=== PATIENT | male | born 1960 | race African-American/Black ===

== ENCOUNTER 2020-09-03 03:40 | Emergency (ER) | payer MEDICAID ==
[~2020-09-03] VITALS: Ht 182.9 cm; Wt 91.0 kg
[2020-09-03 05:30] LABS: EOSINOPHILS % 4.3 % (0.0-5.0); HEMATOCRIT. 40.8 % (42.0-52.0); HEMOGLOBIN. 13.8 g/dL (14.0-18.0); LYMPHOCYTES % 17.2 % (20.0-50.0); MEAN CORPUSCULAR HEMOGLOBIN 30.6 pg (28.0-32.0); MEAN CORPUSCULAR VOLUME 90.2 fL (80.0-94.0); MEAN PLATELET VOLUME 10.2 fl (7.4-10.4); MONOCYTES % 8.4 % (2.0-8.0); NEUTROPHILS % 69.1 % (40.0-76.0); PLATELET 172 x1000/uL (130-400); RED BLOOD CELL COUNT 4.53 mill/uL (4.7-6.1); RED CELL DISTRIBUTION WIDTH 13.2 % (11.6-14.6)
[2020-09-03 05:39] LABS: CHLORIDE 110 mEq/L (98-107)
[2020-09-03 05:43] LABS: ETHANOL BLOOD < 10 mg/dL
[2020-09-03 06:22] LABS: CLARITY URINE CLEAR (CLEAR); COLOR URINE YELLOW (YELLOW); KETONES URINE NEGATIVE (NEGATIVE); LEUKOCYTE ESTERASE URINE NEGATIVE (NEGATIVE); NITRITE URINE NEGATIVE (NEGATIVE); OCCULT BLOOD URINE NEGATIVE (NEGATIVE); PROTEIN URINE 2+ (NEGATIVE); SPECIFIC GRAVITY URINE 1.022 (1.005-1.030)
[2020-09-03 06:34] LABS: *AMPHETAMINES SCREEN URINE NEGATIVE (NEGATIVE); *BARBITURATES SCREEN URINE NEGATIVE (NEGATIVE); *BENZODIAZEPINES SCREEN URINE NEGATIVE (NEGATIVE); *COCAINE SCREEN URINE PRESUMTIVE POSITIVE (NEGATIVE); METHADONE URINE SCREEN NEGATIVE (NEGATIVE); OPIATES URINE SCREEN NEGATIVE (NEGATIVE)
[2020-09-03 06:35] LABS: CANNABINOID URINE SCREEN NEGATIVE (NEGATIVE); PHENCYCLIDINE URINE SCREEN PRESUMTIVE POSITIVE (NEGATIVE)
[2020-09-03] MEDS ORDERED: SODIUM CHLORIDE 0.9% 1,000 ML IV ONE (06:45)
[2020-09-03 08:53] VITALS: BP 135/80
== END 2020-09-03 08:57 | disposition home or self-care (01) ==
LOC: ER 03:47 → EDBD 03:47 → ER 08:57
DX: R41.82 Altered mental status, unspecified (principal); F16.10 Hallucinogen abuse, uncomplicated
CPT/HCPCS: 36415; 70450; 80053; 80305; 80307; 80320; 80329; 81003; 84484; 85025; 93005; 99285; J7030; G0480

== ENCOUNTER 2021-07-03 04:51 | Emergency (ER) | payer MEDICAID ==
[~2021-07-03] VITALS: Ht 170.2 cm; Wt 77.0 kg
[2021-07-03] MEDS ORDERED: ACETAMINOPHEN 325MG TABLET PO ONE (05:45)
[2021-07-03] MEDS ORDERED: AMOXICILLIN/POTASSIUM CLAVULANATE 875/125MG TAB PO ONE (05:45)
[2021-07-03] MEDS ORDERED: AMOX-424 MT (06:01)
[2021-07-03] MEDS ORDERED: ACET-2708 MT (06:01)
[2021-07-03] MEDS ORDERED: CHLO473M2 MT (06:08)
[2021-07-03 06:47] VITALS: BP 162/98
== END 2021-07-03 06:48 | disposition home or self-care (01) ==
LOC: ER 04:51
DX: S02.5XXA Fracture of tooth (traumatic), initial encounter for closed fracture (principal); S06.9X0A Unspecified intracranial injury without loss of consciousness, initial encounter; F17.200 Nicotine dependence, unspecified, uncomplicated; I10 Essential (primary) hypertension; Z98.890 Other specified postprocedural states; X58.XXXA Exposure to other specified factors, initial encounter; Y93.89 Activity, other specified; Y92.89 Other specified places as the place of occurrence of the external cause; Y99.8 Other external cause status
CPT/HCPCS: 99283

== ENCOUNTER 2021-08-11 04:53 | Emergency (ER) | payer MEDICAID ==
[~2021-08-11] VITALS: Ht 170.2 cm; Wt 78.0 kg
[~2021-08-11 04:53] MED LIST: ACET-2708 MT; AMOX-424 MT; CHLO473M2 MT
[2021-08-11 08:41] LABS: BASOPHILS % 0.3 % (0.0-2.0); HEMATOCRIT. 44.8 % (42.0-52.0); HEMOGLOBIN. 15.2 g/dL (14.0-18.0); LYMPHOCYTES % 13.1 % (20.0-50.0); MEAN CORPUSCULAR HEMOGLOBIN 29.6 pg (28.0-32.0); MEAN CORPUSCULAR VOLUME 87.3 fL (80.0-94.0); MEAN PLATELET VOLUME 9.6 fl (7.4-10.4); MONOCYTES % 9.1 % (2.0-8.0); NEUTROPHILS % 77.5 % (40.0-76.0); PLATELET 133 x1000/uL (130-400); RED BLOOD CELL COUNT 5.13 mill/uL (4.7-6.1); RED CELL DISTRIBUTION WIDTH 13.8 % (11.6-14.6)
[2021-08-11 13:37] VITALS: BP 146/89
== END 2021-08-11 13:40 | disposition home or self-care (01) ==
LOC: ER 04:53
DX: J18.9 Pneumonia, unspecified organism (principal); N28.9 Disorder of kidney and ureter, unspecified; F99 Mental disorder, not otherwise specified; I10 Essential (primary) hypertension; Z86.19 Personal history of other infectious and parasitic diseases
CPT/HCPCS: 36415; 71045; 80048; 83880; 84484; 85025; 87426; 99284

== ENCOUNTER 2023-01-18 02:25 | Emergency (ER) | payer MEDICARE, MEDICAID ==
[~2023-01-18] VITALS: Ht 170.2 cm; Wt 70.0 kg
[~2023-01-18 02:25] MED LIST changes: +ASPI-1406 PO; +ATOR20TA MT; +ATOR20TA65 PO; +CARV6.2548 PO; +CLOP-31 MT; +CLOP75TA33 PO; +FURO-151 MT; +LEVO750T68 PO; +LISI-186 PO; +LISI10TA26 MT; +MONT-39 PO
[2023-01-18 02:35] VITALS: BP 166/123
[2023-01-18] MEDS ORDERED: ALBUTEROL (0.083%) 2.5MG/3ML NEB HHN STA (04:45)
[2023-01-18] MEDS ORDERED: METHYLPREDNISOLONE SOD SUCC 125 MG/2 ML VIAL IM STA (04:45)
[2023-01-18] MEDS ORDERED: IPRATROPIUM BROMIDE (0.02%) 0.5MG/2.5ML NEB HHN STA (04:45)
[2023-01-18] MEDS ORDERED: DEXTL MT (05:57)
[2023-01-18] MEDS ORDERED: P50 PO (05:57)
[2023-01-18] MEDS ORDERED: ALBU18HF2 IH (05:57)
[2023-01-18] MEDS ORDERED: AMOX1TAB16 PO (05:57)
== END 2023-01-18 06:13 | disposition home or self-care (01) ==
LOC: ER 02:25
DX: J44.1 Chronic obstructive pulmonary disease with (acute) exacerbation (principal); J20.9 Acute bronchitis, unspecified; J44.0 Chronic obstructive pulmonary disease with (acute) lower respiratory infection; I10 Essential (primary) hypertension; Z20.822 Contact with and (suspected) exposure to COVID-19; Z79.01 Long term (current) use of anticoagulants; Z98.61 Coronary angioplasty status
CPT/HCPCS: 71045; 87426; 94640; 96372; 99284; C9803; J2930; Z7610

== ENCOUNTER 2023-01-28 13:16 | Inpatient (IN) | payer MEDICARE, MEDICAID ==
[2023-01-28] VITALS (9 sets, daily range): BP systolic 95–135; BP diastolic 65–98
[~2023-01-28] VITALS: Ht 170.2 cm; Wt 63.8 kg
[~2023-01-28 13:16] MED LIST changes: +ALBU18HF2 IH; +AMOX1TAB16 PO; +DEXTL MT; +P50 PO
[2023-01-28] MEDS ORDERED: METHYLPREDNISOLONE SOD SUCC 125 MG/2 ML VIAL IV STA (13:58)
[2023-01-28] MEDS ORDERED: IPRATROPIUM BROMIDE (0.02%) 0.5MG/2.5ML NEB HHN STA (13:58)
[2023-01-28] MEDS ORDERED: ALBUTEROL (0.083%) 2.5MG/3ML NEB HHN SCH (14:00)
[2023-01-28] MEDS ORDERED: PROPOFOL 10MG/ML 100ML 100 ML IV ONE (14:00)
[2023-01-28] MEDS ORDERED: SUCCINYLCHOLINE CHLORIDE 200MG/10ML IV ONE (14:00)
[2023-01-28] MEDS ORDERED: MAGNESIUM 2 G PREMIX 50 ML IV ONE (14:00)
[2023-01-28] MEDS ORDERED: ETOMIDATE 2MG/ML 10ML VIAL IV ONE (14:00)
[2023-01-28 14:17] LABS: CHLORIDE 104 mEq/L (98-107)
[2023-01-28 14:45] LABS: HEMATOCRIT. 48.7 % (42.0-52.0); HEMOGLOBIN. 15.6 g/dL (14.0-18.0); MEAN CORPUSCULAR HEMOGLOBIN 29.4 pg (28.0-32.0); MEAN PLATELET VOLUME 9.1 fl (7.4-10.4); PLATELET 284 x1000/uL (130-400); RED CELL DISTRIBUTION WIDTH 14.4 % (11.6-14.6)
[2023-01-28] MEDS ORDERED: FUROSEMIDE 40MG/4ML VIAL IV ONE (14:45)
[2023-01-28 15:08] LABS: BG BASE EXCESS -2.2 mmol/L (-2.0-2.0); BG CARBOXYHEMOGLOBIN 2.5 % (0.5-1.5); BG DEOXYHEMOGLOBIN 5.7 % (0.0-5.0); BG HCO3 ACT 26.4 mmol/L (22.0-26.0); BG METHEMOGLOBIN 0.4 % (0.0-1.5); BG OXYGEN SATURATION 94.1 % (92.0-98.5); BG OXYHEMOGLOBIN 91.4 % (94.0-97.0); BG PCO2 60.7 mmHg (35.0-45.0); BG PH 7.256 (7.350-7.450); BG PO2 83.9 mmHg (75.0-100.0); BG SAMPLE SITE LEFT RADIAL; BG TOTAL HEMOGLOBIN 15.9 g/dL (12.0-18.0); BG VENT MODE VENT - AC
[2023-01-28 15:09] LABS: PLATELET ESTIMATE NORMAL
[2023-01-28] MEDS ORDERED: MIDAZOLAM HCL 100 MG in DEXT 5% WATER 80 ML IV SCH (15:30)
[2023-01-28] MEDS ORDERED: SUCCINYLCHOLINE CHLORIDE 200MG/10ML IV NR (15:30)
[2023-01-28 16:18] LABS: BG BASE EXCESS 0.1 mmol/L (-2.0-2.0); BG DEOXYHEMOGLOBIN 2.1 % (0.0-5.0); BG HCO3 ACT 25.8 mmol/L (22.0-26.0); BG METHEMOGLOBIN 0.3 % (0.0-1.5); BG OXYGEN SATURATION 97.9 % (92.0-98.5); BG OXYHEMOGLOBIN 95.6 % (94.0-97.0); BG PCO2 45.5 mmHg (35.0-45.0); BG PH 7.372 (7.350-7.450); BG SAMPLE SITE RIGHT BRACHIAL; BG VENT MODE VENT - AC
[2023-01-28] MEDS ORDERED: FENTANYL CITRATE/PF 2,500 MCG in SODIUM CHLORIDE 0.9% 200 ML IV PRN (16:30)
[2023-01-28] MEDS ORDERED: IPRATROPIUM/ALBUTEROL 0.5-3(2.5)MG/3ML NEB HHN PRN (16:45)
[2023-01-28] MEDS: PROPOFOL 10MG/ML 100ML 100 ML IV PRN (19:02)
[2023-01-28] MEDS: FENTANYL CITRATE/PF 2,500 MCG in SODIUM CHLORIDE 0.9% 200 ML IV PRN (19:03)
[2023-01-28] MEDS: BUDESONIDE 0.5MG/2ML NEB HHN SCH (20:17)
[2023-01-28] MEDS: IPRATROPIUM/ALBUTEROL 0.5-3(2.5)MG/3ML NEB HHN SCH (20:17)
[2023-01-28 21:12] LABS: CLARITY URINE CLEAR (CLEAR); COLOR URINE YELLOW (YELLOW); KETONES URINE NEGATIVE (NEGATIVE); LEUKOCYTE ESTERASE URINE 3+ (NEGATIVE); NITRITE URINE NEGATIVE (NEGATIVE); OCCULT BLOOD URINE 3+ (NEGATIVE); PROTEIN URINE TRACE (NEGATIVE); SPECIFIC GRAVITY URINE 1.017 (1.005-1.030); UROBILINOGEN URINE 0.2 E.U./dL (0.2-1.0)
[2023-01-28 21:23] LABS: *AMPHETAMINES SCREEN URINE NEGATIVE (NEGATIVE); *BARBITURATES SCREEN URINE NEGATIVE (NEGATIVE); *BENZODIAZEPINES SCREEN URINE NEGATIVE (NEGATIVE); *COCAINE SCREEN URINE PRESUMTIVE POSITIVE (NEGATIVE); CANNABINOID URINE SCREEN NEGATIVE (NEGATIVE); METHADONE URINE SCREEN NEGATIVE (NEGATIVE); OPIATES URINE SCREEN NEGATIVE (NEGATIVE); PHENCYCLIDINE URINE SCREEN PRESUMTIVE POSITIVE (NEGATIVE)
[2023-01-28] MEDS ORDERED: ENOXAPARIN 40MG/0.4ML SYR SUBCUT SCH (21:45)
[2023-01-28] MEDS ORDERED: DOCUSATE SODIUM 100MG CAPSULE PO PRN (21:45)
[2023-01-28] MEDS: SODIUM CHLORIDE 0.9% 1,000 ML IV SCH (22:32)
[2023-01-28] MEDS: PANTOPRAZOLE SODIUM 40 MG/VIAL IV SCH (22:32)
[2023-01-28] MEDS ORDERED: VANCOMYCIN 1.25GM PMX (XELLIA) 250 ML IV NR (23:00)
[2023-01-28] MEDS: PIPERACILLIN/TAZOBACTAM 3.375 G in DEXTROSE 5% WATER 50 ML IV SCH (23:28)
[2023-01-29] VITALS (58 sets, daily range): BP systolic 124–161; BP diastolic 86–118
[2023-01-29] MEDS: IPRATROPIUM/ALBUTEROL 0.5-3(2.5)MG/3ML NEB HHN SCH ×4 (01:54→20:46)
[2023-01-29] MEDS: PROPOFOL 10MG/ML 100ML 100 ML IV PRN ×3 (02:05→15:58)
[2023-01-29] MEDS: PIPERACILLIN/TAZOBACTAM 3.375 G in DEXTROSE 5% WATER 50 ML IV SCH ×2 (05:33→14:25)
[2023-01-29 05:53] LABS: HEMATOCRIT. 44.4 % (42.0-52.0); HEMOGLOBIN. 14.4 g/dL (14.0-18.0); MEAN CORPUSCULAR HEMOGLOBIN 29.8 pg (28.0-32.0); MEAN PLATELET VOLUME 9.9 fl (7.4-10.4); PLATELET 225 x1000/uL (130-400); RED BLOOD CELL COUNT 4.83 mill/uL (4.7-6.1); RED CELL DISTRIBUTION WIDTH 14.3 % (11.6-14.6)
[2023-01-29 07:29] LABS: CHLORIDE 106 mEq/L (98-107)
[2023-01-29] MEDS: BUDESONIDE 0.5MG/2ML NEB HHN SCH ×2 (08:39→20:46)
[2023-01-29] MEDS: PANTOPRAZOLE SODIUM 40 MG/VIAL IV SCH (08:46)
[2023-01-29] MEDS: FUROSEMIDE 40MG/4ML VIAL IVP SCH (08:46)
[2023-01-29 08:54] LABS: BG BASE EXCESS 0.5 mmol/L (-2.0-2.0); BG DEOXYHEMOGLOBIN 2.9 % (0.0-5.0); BG FRACTION INSPIRED OXYGEN 40; BG HCO3 ACT 25.3 mmol/L (22.0-26.0); BG METHEMOGLOBIN 0.4 % (0.0-1.5); BG OXYGEN SATURATION 97.1 % (92.0-98.5); BG OXYHEMOGLOBIN 95.7 % (94.0-97.0); BG PCO2 41.5 mmHg (35.0-45.0); BG PH 7.403 (7.350-7.450); BG PO2 96.5 mmHg (75.0-100.0); BG SAMPLE SITE RIGHT BRACHIAL; BG TOTAL HEMOGLOBIN 14.9 g/dL (12.0-18.0); BG VENT MODE VENT - AC
[2023-01-29 09:13] LABS: PLATELET ESTIMATE NORMAL
[2023-01-29] MEDS: VANCOMYCIN 750MG PREMIX 150 ML IV SCH (11:20)
[2023-01-29] MEDS: AMLODIPINE 5MG TABLET PO SCH (12:25)
[2023-01-29] MEDS: SODIUM CHLORIDE 0.9% 1,000 ML IV SCH (12:25)
[2023-01-29] MEDS ORDERED: PROPOFOL 10MG/ML 100ML 100 ML IV PRN (14:30)
[2023-01-29] MEDS: CLONIDINE 0.1MG TABLET PO PRN (14:36)
[2023-01-29] MEDS: ENOXAPARIN 40MG/0.4ML SYR SUBCUT SCH (17:53)
[2023-01-30] VITALS (47 sets, daily range): BP systolic 60–161; BP diastolic 65–112
[2023-01-30] MEDS: VANCOMYCIN 750MG PREMIX 150 ML IV SCH ×3 (00:26→23:29)
[2023-01-30] MEDS: FUROSEMIDE 40MG/4ML VIAL IVP SCH ×3 (00:26→21:18)
[2023-01-30] MEDS: PIPERACILLIN/TAZOBACTAM 3.375 G in DEXTROSE 5% WATER 50 ML IV SCH ×4 (00:26→21:18)
[2023-01-30] MEDS: IPRATROPIUM/ALBUTEROL 0.5-3(2.5)MG/3ML NEB HHN SCH ×4 (01:57→20:14)
[2023-01-30] MEDS: SODIUM CHLORIDE 0.9% 1,000 ML IV SCH (05:35)
[2023-01-30] MEDS: PROPOFOL 10MG/ML 100ML 100 ML IV PRN ×2 (05:36→21:18)
[2023-01-30 06:06] LABS: CHLORIDE 104 mEq/L (98-107)
[2023-01-30] MEDS: PANTOPRAZOLE SODIUM 40 MG/VIAL IV SCH (08:14)
[2023-01-30] MEDS: AMLODIPINE 5MG TABLET PO SCH (08:15)
[2023-01-30] MEDS: BUDESONIDE 0.5MG/2ML NEB HHN SCH ×2 (08:25→20:14)
[2023-01-30 08:28] LABS: BG BASE EXCESS 4.2 mmol/L (-2.0-2.0); BG CARBOXYHEMOGLOBIN 1.1 % (0.5-1.5); BG DEOXYHEMOGLOBIN 2.3 % (0.0-5.0); BG FRACTION INSPIRED OXYGEN 40; BG HCO3 ACT 28.9 mmol/L (22.0-26.0); BG METHEMOGLOBIN 0.4 % (0.0-1.5); BG OXYGEN SATURATION 97.7 % (92.0-98.5); BG OXYHEMOGLOBIN 96.2 % (94.0-97.0); BG PCO2 43.7 mmHg (35.0-45.0); BG PH 7.439 (7.350-7.450); BG PO2 99.7 mmHg (75.0-100.0); BG SAMPLE SITE RIGHT RADIAL; BG VENT MODE VENT - AC
[2023-01-30] MEDS: CLONIDINE 0.1MG TABLET PO PRN (14:41)
[2023-01-30] MEDS: LORAZEPAM 2MG/ML CPJ IV PRN (15:27)
[2023-01-30] MEDS: ENOXAPARIN 40MG/0.4ML SYR SUBCUT SCH (17:31)
[2023-01-30] MEDS: FENTANYL CITRATE/PF 2,500 MCG in SODIUM CHLORIDE 0.9% 200 ML IV PRN (22:18)
[2023-01-31] VITALS (39 sets, daily range): BP systolic 54–222; BP diastolic 48–151
[2023-01-31] MEDS: IPRATROPIUM/ALBUTEROL 0.5-3(2.5)MG/3ML NEB HHN SCH ×4 (00:11→20:53)
[2023-01-31] MEDS: PROPOFOL 10MG/ML 100ML 100 ML IV PRN ×2 (04:53→12:25)
[2023-01-31 05:44] LABS: BASOPHILS % 0.7 % (0.0-2.0); EOSINOPHILS % 1.2 % (0.0-5.0); HEMATOCRIT. 43.7 % (42.0-52.0); HEMOGLOBIN. 14.5 g/dL (14.0-18.0); LYMPHOCYTES % 9.6 % (20.0-50.0); MEAN CORPUSCULAR VOLUME 90.5 fL (80.0-94.0); MEAN PLATELET VOLUME 8.9 fl (7.4-10.4); MONOCYTES % 9.5 % (2.0-8.0); PLATELET 256 x1000/uL (130-400); RED BLOOD CELL COUNT 4.83 mill/uL (4.7-6.1); RED CELL DISTRIBUTION WIDTH 14.2 % (11.6-14.6)
[2023-01-31 05:51] LABS: CHLORIDE 102 mEq/L (98-107)
[2023-01-31] MEDS: PIPERACILLIN/TAZOBACTAM 3.375 G in DEXTROSE 5% WATER 50 ML IV SCH ×3 (06:19→22:17)
[2023-01-31] MEDS: BUDESONIDE 0.5MG/2ML NEB HHN SCH ×2 (07:36→20:53)
[2023-01-31] MEDS: FUROSEMIDE 40MG/4ML VIAL IVP SCH (08:20)
[2023-01-31] MEDS: PANTOPRAZOLE SODIUM 40 MG/VIAL IV SCH (08:20)
[2023-01-31] MEDS: AMLODIPINE 5MG TABLET PO SCH (08:21)
[2023-01-31] MEDS: LORAZEPAM 2MG/ML CPJ IV PRN ×2 (09:11→19:01)
[2023-01-31] MEDS ORDERED: HALOPERIDOL LACTATE 5MG/ML VIAL IM SCH (11:00)
[2023-01-31] MEDS: HYDRALAZINE 20MG/ML VIAL IV PRN ×2 (11:14→21:06)
[2023-01-31 11:32] LABS: BG BASE EXCESS 7.4 mmol/L (-2.0-2.0); BG CARBOXYHEMOGLOBIN 0.9 % (0.5-1.5); BG DEOXYHEMOGLOBIN 4.2 % (0.0-5.0); BG HCO3 ACT 36.6 mmol/L (22.0-26.0); BG METHEMOGLOBIN 0.5 % (0.0-1.5); BG OXYGEN SATURATION 95.7 % (92.0-98.5); BG OXYHEMOGLOBIN 94.4 % (94.0-97.0); BG PO2 88.8 mmHg (75.0-100.0); BG SAMPLE SITE RIGHT BRACHIAL; BG TOTAL HEMOGLOBIN 16.6 g/dL (12.0-18.0); BG VENT MODE VENT - CPAP
[2023-01-31] MEDS ORDERED: FENTANYL CITRATE 2,500 MCG in SODIUM CHLORIDE 0.9% 200 ML IV PRN (12:30)
[2023-01-31] MEDS ORDERED: FENTANYL 2500MCG/250ML PMX 250 ML IV ONE (12:30)
[2023-01-31] MEDS: ENOXAPARIN 40MG/0.4ML SYR SUBCUT SCH (17:35)
[2023-01-31] MEDS: DEXT 5%/0.9% NACL 1,000 ML IV SCH (20:53)
[2023-01-31] MEDS ORDERED: LORAZEPAM 2MG/ML CPJ IV NR (22:30)
[2023-01-31] MEDS ORDERED: DIPHENHYDRAMINE 50MG/ML VIAL IV NR (22:30)
[2023-01-31] MEDS ORDERED: HALOPERIDOL LACTATE 5MG/ML VIAL IM NR (22:30)
[2023-02-01] VITALS (27 sets, daily range): BP systolic 119–180; BP diastolic 67–153
[2023-02-01] MEDS: IPRATROPIUM/ALBUTEROL 0.5-3(2.5)MG/3ML NEB HHN SCH ×4 (02:55→20:51)
[2023-02-01] MEDS: HYDRALAZINE 20MG/ML VIAL IV PRN ×3 (03:00→19:37)
[2023-02-01] MEDS: LORAZEPAM 2MG/ML CPJ IV PRN ×3 (05:58→23:52)
[2023-02-01] MEDS: PIPERACILLIN/TAZOBACTAM 3.375 G in DEXTROSE 5% WATER 50 ML IV SCH ×3 (05:58→22:28)
[2023-02-01 07:04] LABS: CHLORIDE 105 mEq/L (98-107)
[2023-02-01] MEDS: BUDESONIDE 0.5MG/2ML NEB HHN SCH ×2 (08:08→20:51)
[2023-02-01 09:37] LABS: BG BASE EXCESS -1.1 mmol/L (-2.0-2.0); BG CARBOXYHEMOGLOBIN 0.7 % (0.5-1.5); BG DEOXYHEMOGLOBIN 10.3 % (0.0-5.0); BG FRACTION INSPIRED OXYGEN 28; BG HCO3 ACT 21.4 mmol/L (22.0-26.0); BG METHEMOGLOBIN 0.2 % (0.0-1.5); BG OXYGEN SATURATION 89.6 % (92.0-98.5); BG OXYHEMOGLOBIN 88.8 % (94.0-97.0); BG PCO2 30.5 mmHg (35.0-45.0); BG PH 7.463 (7.350-7.450); BG PO2 55.1 mmHg (75.0-100.0); BG SAMPLE SITE RIGHT RADIAL; BG TOTAL HEMOGLOBIN 17.4 g/dL (12.0-18.0); BG VENT MODE NASAL CANNULA
[2023-02-01] MEDS: PANTOPRAZOLE SODIUM 40 MG/VIAL IV SCH (10:00)
[2023-02-01] MEDS: FUROSEMIDE 40MG/4ML VIAL IVP SCH (10:01)
[2023-02-01] MEDS: AMLODIPINE 5MG TABLET PO SCH (10:03)
[2023-02-01] MEDS: QUETIAPINE FUMARATE 25MG TABLET PO SCH ×2 (13:28→22:28)
[2023-02-01] MEDS: DEXT 5%/0.9% NACL 1,000 ML IV SCH (13:28)
[2023-02-01] MEDS: ENOXAPARIN 40MG/0.4ML SYR SUBCUT SCH (18:31)
[2023-02-02] VITALS (20 sets, daily range): BP systolic 134–200; BP diastolic 80–129
[2023-02-02] MEDS: IPRATROPIUM/ALBUTEROL 0.5-3(2.5)MG/3ML NEB HHN SCH ×2 (01:58→09:24)
[2023-02-02] MEDS: HYDRALAZINE 20MG/ML VIAL IV PRN ×2 (03:00→09:10)
[2023-02-02] MEDS: LORAZEPAM 2MG/ML CPJ IV PRN ×3 (04:23→15:47)
[2023-02-02] MEDS: QUETIAPINE FUMARATE 25MG TABLET PO SCH ×3 (05:51→22:02)
[2023-02-02] MEDS: DEXT 5%/0.9% NACL 1,000 ML IV SCH ×2 (06:19→22:03)
[2023-02-02 06:37] LABS: HEMATOCRIT. 50.2 % (42.0-52.0); HEMOGLOBIN. 16.6 g/dL (14.0-18.0); MEAN CORPUSCULAR HEMOGLOBIN 29.7 pg (28.0-32.0); MEAN PLATELET VOLUME 9.5 fl (7.4-10.4); PLATELET 304 x1000/uL (130-400); RED BLOOD CELL COUNT 5.58 mill/uL (4.7-6.1)
[2023-02-02] MEDS: PIPERACILLIN/TAZOBACTAM 3.375 G in DEXTROSE 5% WATER 50 ML IV SCH ×2 (06:42→14:00)
[2023-02-02 06:45] LABS: CHLORIDE 109 mEq/L (98-107)
[2023-02-02] MEDS: AMLODIPINE 5MG TABLET PO SCH ×2 (09:00→14:00)
[2023-02-02] MEDS: FUROSEMIDE 40MG/4ML VIAL IVP SCH (09:09)
[2023-02-02] MEDS: PANTOPRAZOLE SODIUM 40 MG/VIAL IV SCH (09:09)
[2023-02-02] MEDS: BUDESONIDE 0.5MG/2ML NEB HHN SCH (09:24)
[2023-02-02 13:12] LABS: PLATELET ESTIMATE NORMAL
[2023-02-02] MEDS: CLONIDINE 0.1MG TABLET PO PRN (13:59)
[2023-02-02] MEDS ORDERED: ALBUTEROL (0.083%) 2.5MG/3ML NEB HHN PRN (15:45)
[2023-02-02] MEDS ORDERED: IPRATROPIUM BROMIDE (0.02%) 0.5MG/2.5ML NEB HHN PRN (15:45)
[2023-02-02] MEDS ORDERED: CLONIDINE 0.2MG TABLET PO PRN (15:45)
[2023-02-02] MEDS: ENOXAPARIN 40MG/0.4ML SYR SUBCUT SCH (17:44)
[2023-02-02] MEDS: IPRATROPIUM BROMIDE (0.02%) 0.5MG/2.5ML NEB HHN SCH (20:36)
[2023-02-02] MEDS: ALBUTEROL (0.083%) 2.5MG/3ML NEB HHN SCH (20:36)
[2023-02-03] VITALS: BP 136/72
[2023-02-03] MEDS: IPRATROPIUM BROMIDE (0.02%) 0.5MG/2.5ML NEB HHN SCH ×4 (02:16→21:14)
[2023-02-03] MEDS: ALBUTEROL (0.083%) 2.5MG/3ML NEB HHN SCH ×4 (02:17→21:14)
[2023-02-03 04:00] VITALS: BP 145/76
[2023-02-03] MEDS: QUETIAPINE FUMARATE 25MG TABLET PO SCH ×3 (05:45→21:08)
[2023-02-03 08:00] VITALS: BP 143/98
[2023-02-03] MEDS: PANTOPRAZOLE SODIUM 40 MG/VIAL IV SCH (09:01)
[2023-02-03] MEDS: BUDESONIDE 0.5MG/2ML NEB HHN SCH (09:02)
[2023-02-03] MEDS: AMLODIPINE 5MG TABLET PO SCH (09:05)
[2023-02-03] MEDS: FUROSEMIDE 40MG/4ML VIAL IVP SCH (09:05)
[2023-02-03 12:00] VITALS: BP 141/98
[2023-02-03] MEDS: DEXT 5%/0.9% NACL 1,000 ML IV SCH (15:10)
[2023-02-03 16:00] VITALS: BP 141/77
[2023-02-03] MEDS: ENOXAPARIN 40MG/0.4ML SYR SUBCUT SCH (18:16)
[2023-02-03 20:00] VITALS: BP 156/96
[2023-02-04] VITALS: BP 136/66
[2023-02-04] MEDS: ALBUTEROL (0.083%) 2.5MG/3ML NEB HHN SCH ×4 (02:48→21:35)
[2023-02-04] MEDS: IPRATROPIUM BROMIDE (0.02%) 0.5MG/2.5ML NEB HHN SCH ×4 (02:48→21:37)
[2023-02-04 04:00] VITALS: BP 129/98
[2023-02-04] MEDS: QUETIAPINE FUMARATE 25MG TABLET PO SCH ×3 (05:44→21:07)
[2023-02-04] MEDS: DEXT 5%/0.9% NACL 1,000 ML IV SCH (06:53)
[2023-02-04] MEDS ORDERED: FAMOTIDINE 20MG/2ML VIAL IV SCH (09:00)
[2023-02-04] MEDS: AMLODIPINE 5MG TABLET PO SCH (09:21)
[2023-02-04] MEDS: FUROSEMIDE 40MG/4ML VIAL IVP SCH (10:19)
[2023-02-04] MEDS ORDERED: ATOR20TA MT (10:21)
[2023-02-04] MEDS ORDERED: AMLO5TAB88 PO (10:21)
[2023-02-04] MEDS ORDERED: CLOP75TA33 PO (10:21)
[2023-02-04] MEDS ORDERED: ALBU18HF2 IH (10:21)
[2023-02-04] MEDS ORDERED: CARV6.2548 PO (10:21)
[2023-02-04] MEDS ORDERED: FURO-151 MT (10:21)
[2023-02-04] MEDS ORDERED: QUET25TA PO (10:21)
[2023-02-04] MEDS ORDERED: ASPI-1406 PO (10:21)
[2023-02-04 11:55] LABS: CHLORIDE 110 mEq/L (98-107)
[2023-02-04 12:00] VITALS: BP 143/96
[2023-02-04 16:00] VITALS: BP 142/77
[2023-02-04] MEDS: ENOXAPARIN 40MG/0.4ML SYR SUBCUT SCH (17:44)
[2023-02-04] MEDS: FAMOTIDINE 20MG TABLET PO SCH (18:02)
[2023-02-04 20:00] VITALS: BP 130/88
[2023-02-05] VITALS: BP 128/82
[2023-02-05 04:00] VITALS: BP 126/87
[2023-02-05] MEDS: QUETIAPINE FUMARATE 25MG TABLET PO SCH ×2 (05:24→14:00)
[2023-02-05 06:02] LABS: BASOPHILS % 1.1 % (0.0-2.0); EOSINOPHILS % 6.7 % (0.0-5.0); HEMATOCRIT. 42.7 % (42.0-52.0); HEMOGLOBIN. 13.9 g/dL (14.0-18.0); LYMPHOCYTES % 20.8 % (20.0-50.0); MEAN CORPUSCULAR HEMOGLOBIN 29.6 pg (28.0-32.0); MEAN CORPUSCULAR VOLUME 90.9 fL (80.0-94.0); MONOCYTES % 11.8 % (2.0-8.0); NEUTROPHILS % 59.6 % (40.0-76.0); PLATELET 245 x1000/uL (130-400); RED BLOOD CELL COUNT 4.69 mill/uL (4.7-6.1); RED CELL DISTRIBUTION WIDTH 13.5 % (11.6-14.6)
[2023-02-05 07:25] LABS: CHLORIDE 107 mEq/L (98-107)
[2023-02-05 08:00] VITALS: BP 140/88
[2023-02-05] MEDS: ALBUTEROL (0.083%) 2.5MG/3ML NEB HHN SCH ×2 (09:02)
[2023-02-05] MEDS: IPRATROPIUM BROMIDE (0.02%) 0.5MG/2.5ML NEB HHN SCH ×2 (09:02)
[2023-02-05] MEDS: AMLODIPINE 5MG TABLET PO SCH (10:18)
[2023-02-05] MEDS: FUROSEMIDE 40MG/4ML VIAL IVP SCH (10:18)
[2023-02-05] MEDS: FAMOTIDINE 20MG TABLET PO SCH (10:19)
[2023-02-05 12:00] VITALS: BP 143/82
[2023-02-05 13:44] VITALS: BP 138/79
== END 2023-02-05 15:08 | DRG 133 ==
LOC: ER 13:16 → EDBEDREQ 15:56 → EDBEDREQTM 15:56 → ER 19:46 → CVICU 19:51 → 7EST 02-02 15:35
PROVIDERS: ADMIT Internal Medicine; ATTEND Internal Medicine
PROC: 5A1945Z Respiratory Ventilation, 24-96 Consecutive Hours (ICD-10-PCS; principal; 2023-01-28)
PROC: 0BH17EZ Insertion of Endotracheal Airway into Trachea, Via Natural or Artificial Opening (ICD-10-PCS; 2023-01-28)
DX: J96.01 Acute respiratory failure with hypoxia (principal); I50.23 Acute on chronic systolic (congestive) heart failure; G92.8 Other toxic encephalopathy; J15.6 Pneumonia due to other Gram-negative bacteria; J44.0 Chronic obstructive pulmonary disease with (acute) lower respiratory infection; N17.9 Acute kidney failure, unspecified; E87.29 Other acidosis; I11.0 Hypertensive heart disease with heart failure; J44.9 Chronic obstructive pulmonary disease, unspecified; J44.1 Chronic obstructive pulmonary disease with (acute) exacerbation; I34.0 Nonrheumatic mitral (valve) insufficiency; F14.10 Cocaine abuse, uncomplicated; N39.0 Urinary tract infection, site not specified; F17.210 Nicotine dependence, cigarettes, uncomplicated; R74.01 Elevation of levels of liver transaminase levels; Z82.49 Family history of ischemic heart disease and other diseases of the circulatory system; Z78.1 Physical restraint status; Z86.73 Personal history of transient ischemic attack (TIA), and cerebral infarction without residual deficits
CPT/HCPCS: 31500; 36415; 36600; 71045; 80048; 80053; 80202; 80305; 81003; 82375; 82805; 82962; 83735; 83880; 84145; 84478; 84484; 85025; 87070; 87077; 92610; 93005; 93306; 93970; 94002; 94003; 94640; 97162; 97165; 99291; A6261; C1893; C9113; J0360; J1200; J1630; J1650; J1940; J2060; J2250; J2543; J2704; J2930; J3010; J3370; J3475; J3490; J7030; J7042; J7050; J7060; J7626